=== PATIENT | male | born 1940 | race Caucasian/White ===

== ENCOUNTER → 2019-06-05 | Outpatient (CLI) | payer OTHER | LOC: HYPER | DX: R60.0 Localized edema (principal); R21 Rash and other nonspecific skin eruption; E11.39 Type 2 diabetes mellitus with other diabetic ophthalmic complication; H40.9 Unspecified glaucoma; H42 Glaucoma in diseases classified elsewhere; L30.9 Dermatitis, unspecified; I87.2 Venous insufficiency (chronic) (peripheral); I11.0 Hypertensive heart disease with heart failure; I50.9 Heart failure, unspecified; M79.662 Pain in left lower leg; M79.661 Pain in right lower leg; I48.20 Chronic atrial fibrillation, unspecified; M48.00 Spinal stenosis, site unspecified; L84 Corns and callosities; G47.33 Obstructive sleep apnea (adult) (pediatric); E66.01 Morbid (severe) obesity due to excess calories; M10.9 Gout, unspecified; Z87.891 Personal history of nicotine dependence; Z79.4 Long term (current) use of insulin; Z79.84 Long term (current) use of oral hypoglycemic drugs; Z79.82 Long term (current) use of aspirin; Z95.0 Presence of cardiac pacemaker; Z68.42 Body mass index [BMI] 45.0-49.9, adult ==

== ENCOUNTER → 2019-11-26 | Outpatient (CLI) | payer MEDICARE | LOC: HYPER 11:49 | DX: R21 Rash and other nonspecific skin eruption (principal); L30.9 Dermatitis, unspecified; E11.39 Type 2 diabetes mellitus with other diabetic ophthalmic complication; H42 Glaucoma in diseases classified elsewhere; I87.2 Venous insufficiency (chronic) (peripheral); R60.0 Localized edema; I10 Essential (primary) hypertension; I48.91 Unspecified atrial fibrillation; G47.33 Obstructive sleep apnea (adult) (pediatric); E03.9 Hypothyroidism, unspecified; M10.9 Gout, unspecified; M48.00 Spinal stenosis, site unspecified; Z79.4 Long term (current) use of insulin; Z79.84 Long term (current) use of oral hypoglycemic drugs; Z79.82 Long term (current) use of aspirin; Z95.0 Presence of cardiac pacemaker; R41.3 Other amnesia; Z68.42 Body mass index [BMI] 45.0-49.9, adult; Z87.891 Personal history of nicotine dependence ==

== ENCOUNTER → 2020-01-13 | Outpatient (CLI) | payer MEDICARE | LOC: HYPER 13:26 | PROVIDERS: ATTEND Emergency Medicine | DX: S90.415D Abrasion, left lesser toe(s), subsequent encounter (principal); L84 Corns and callosities; L30.9 Dermatitis, unspecified; R60.0 Localized edema; R21 Rash and other nonspecific skin eruption; E11.39 Type 2 diabetes mellitus with other diabetic ophthalmic complication; H40.9 Unspecified glaucoma; E66.01 Morbid (severe) obesity due to excess calories; E03.9 Hypothyroidism, unspecified; G47.33 Obstructive sleep apnea (adult) (pediatric); I87.2 Venous insufficiency (chronic) (peripheral); I48.20 Chronic atrial fibrillation, unspecified; I11.0 Hypertensive heart disease with heart failure; I50.9 Heart failure, unspecified; M10.9 Gout, unspecified; M48.00 Spinal stenosis, site unspecified; Z87.891 Personal history of nicotine dependence; Z79.4 Long term (current) use of insulin; Z79.84 Long term (current) use of oral hypoglycemic drugs; Z79.82 Long term (current) use of aspirin; Z95.0 Presence of cardiac pacemaker; Z68.42 Body mass index [BMI] 45.0-49.9, adult ==

== ENCOUNTER → 2020-02-20 | Outpatient (CLI) | payer MEDICARE | LOC: HYPER 10:08 | PROVIDERS: ATTEND Emergency Medicine | DX: S90.414D Abrasion, right lesser toe(s), subsequent encounter (principal); R60.0 Localized edema; R21 Rash and other nonspecific skin eruption; L84 Corns and callosities; L30.9 Dermatitis, unspecified; E66.01 Morbid (severe) obesity due to excess calories; E03.9 Hypothyroidism, unspecified; E11.39 Type 2 diabetes mellitus with other diabetic ophthalmic complication; H40.9 Unspecified glaucoma; G47.33 Obstructive sleep apnea (adult) (pediatric); I87.2 Venous insufficiency (chronic) (peripheral); I48.20 Chronic atrial fibrillation, unspecified; I10 Essential (primary) hypertension; M48.00 Spinal stenosis, site unspecified; M10.9 Gout, unspecified; Z79.4 Long term (current) use of insulin; Z79.82 Long term (current) use of aspirin; Z95.0 Presence of cardiac pacemaker; Z87.891 Personal history of nicotine dependence; Z68.42 Body mass index [BMI] 45.0-49.9, adult; X58.XXXD Exposure to other specified factors, subsequent encounter ==